=== PATIENT | male | born 1965 | race Caucasian/White ===

== ENCOUNTER 2016-10-04 15:49 | Emergency (ER) | payer BC ==
[2016-10-04 16:08] VITALS: BP 138/77
--- NOTE | 2016-10-04 16:28 | UC ---
UC General HPI - HPI Summary HPI Summary: fever, sinus, chest congestion and SOB on exertion - History of Current Complaint Chief Complaint: UCRespiratory Stated Complaint: SINUS,EAR ACHE Time Seen by Provider: 10/04/16 16:12 Hx Obtained From: Patient Onset/Duration: Sudden Onset, Lasting Days Timing: Constant Onset Severity: Moderate Current Severity: Moderate Pain Intensity: 4 - Allergy/Home Medications Allergies/Adverse Reactions: Allergies Allergy/AdvReac Type Severity Reaction Status Date / Time seasonal Allergy Eyes Uncoded 07/09/14 07:09 Itchy/Swollen/Red/Watery Home Medications: Home Medications Folic Acid-Vitamin B6-Vitamin [Folbee] 1 tab PO DAILY 10/04/16 [History Confirmed 10/04/16] Simvastatin TAB(NF) [Zocor(NF)] 10 mg PO 1700 10/04/16 [History Confirmed ] PMH/Surg Hx/FS Hx/Imm Hx Previously Healthy: Yes Cardiovascular History Of: Reports: Hypertension - Surgical History Surgical History: Yes Surgery Procedure, Year, and Place: Left ankle 2012, nasal 1993 - Family History Known Family History: Positive: Cardiac Disease, Hypertension - Social History Alcohol Use: Daily Alcohol Amount: 2 Substance Use Type: None Smoking Status (MU): Never Smoked Tobacco Review of Systems Skin: Negative Eyes: Negative ENT: Sore Throat, Ear Ache, Nasal Discharge Respiratory: Shortness Of Breath, Cough Cardiovascular: Negative Gastrointestinal: Negative Genitourinary: Negative Motor: Negative Neurovascular: Negative Musculoskeletal: Myalgia Neurological: Headache Psychological: Negative All Other Systems Reviewed And Are Negative: Yes Physical Exam Triage Information Reviewed: Yes Appearance: Well-Nourished, Ill-Appearing, Pain Distress Vital Signs: Initial Vital Signs Temp 98.3 F 10/04/16 16:03 Pulse 81 10/04/16 16:03 Resp 16 10/04/16 16:03 BP 138/77 10/04/16 16:03 Pulse Ox 100 10/04/16 16:03 Vital Signs Reviewed: Yes Eye Exam: Normal Eyes: Positive: Conjunctiva Clear ENT Exam: Normal ENT: Positive: Normal ENT inspection, Hearing grossly normal, Pharynx normal, TMs normal Dental Exam: Normal Neck exam: Normal Neck: Positive: Supple, Nontender, No Lymphadenopathy Respiratory Exam: Normal Respiratory: Positive: Chest non-tender, No respiratory distress, No accessory muscle use, Wheezing, Inspiration Cardiovascular Exam: Normal Cardiovascular: Positive: RRR, No Murmur, Pulses Normal Abdominal Exam: Normal Abdomen Description: Positive: Nontender, No Organomegaly, Soft Bowel Sounds: Positive: Present Musculoskeletal Exam: Normal Musculoskeletal: Positive: Strength Intact, ROM Intact, No Edema Neurological Exam: Normal Neurological: Positive: Alert, Muscle Tone Normal Psychological Exam: Normal Skin Exam: Normal Course/Dx - Course Course Of Treatment: hx obtained, exam performed, meds reviewed, rapid flu obtained, positive for flu A. meds given for bronchospasm - Differential Dx - Multi-Symptom Provider Diagnoses: bronchospasm. influenza a Discharge - Discharge Plan Condition: Stable Disposition: HOME Patient Education Materials: Influenza (ED) Additional Instructions: take tylenol or ibuprofen as prescribed. rest, and get plenty of fluids. take the medication as prescribed.
== END 2016-10-04 17:00 | disposition home or self-care (01) ==
LOC: UCCORT 15:49
DX: J98.01 Acute bronchospasm (principal); J10.1 Influenza due to other identified influenza virus with other respiratory manifestations
CPT/HCPCS: 87502; 99212; G0463

== ENCOUNTER 2016-11-06 11:24 | Emergency (ER) | payer BC ==
--- NOTE | 2016-11-06 13:29 | UC ---
Ear Complaint HPI - HPI Summary HPI Summary: Gumaro he has a 4 week lingering ear infection, ear feels congested and stuffy , no fevers - History of Current Complaint Chief Complaint: UCEar Stated Complaint: LEFT EAR Time Seen by Provider: 11/06/16 13:20 Hx Obtained From: Patient Onset/Duration: Gradual Onset, Lasting Weeks - 4, Still Present Severity Initially: Mild Severity Currently: Mild Pain Intensity: 4 Pain Scale Used: 0-10 Numeric Aggravating Factors: Nothing Alleviating Factors: Nothing Associated Signs/Symptoms: Positive: URI Symptoms - Allergies/Home Medications Allergies/Adverse Reactions: Allergies Allergy/AdvReac Type Severity Reaction Status Date / Time seasonal Allergy Eyes Uncoded 07/09/14 07:09 Itchy/Swollen/Red/Watery PMH/Surg Hx/FS Hx/Imm Hx Previously Healthy: No Cardiovascular History Of: Reports: Hypertension - Surgical History Surgical History: Yes Surgery Procedure, Year, and Place: Left ankle 2012, nasal 1993 - Family History Known Family History: Positive: Cardiac Disease, Hypertension - Social History Occupation: Employed Full-time Lives: With Family Alcohol Use: Daily Alcohol Amount: 2 Substance Use Type: None Smoking Status (MU): Never Smoked Tobacco Review of Systems Constitutional: Negative Skin: Negative Eyes: Negative ENT: Ear Ache, Nasal Discharge Respiratory: Negative Cardiovascular: Negative Gastrointestinal: Negative Genitourinary: Negative Motor: Negative Neurovascular: Negative Musculoskeletal: Negative Neurological: Headache - frontal and maxillary sinus pain L>R Psychological: Negative All Other Systems Reviewed And Are Negative: Yes Physical Exam Triage Information Reviewed: Yes Appearance: Well-Appearing, No Pain Distress, Well-Nourished Vital Signs Reviewed: Yes Eye Exam: Normal Eyes: Positive: Conjunctiva Clear ENT Exam: Normal ENT: Positive: Normal ENT inspection, Hearing grossly normal, Pharynx normal, Nasal congestion, Nasal drainage, TMs normal. Negative: TM red, Tonsillar swelling, Tonsillar exudate, Trismus, Muffled/hoarse voice Dental Exam: Normal Neck exam: Normal Neck: Positive: Supple, Nontender, No Lymphadenopathy Respiratory Exam: Normal Respiratory: Positive: Chest non-tender, Lungs clear, Normal breath sounds, No respiratory distress, No accessory muscle use Cardiovascular Exam: Normal Cardiovascular: Positive: RRR, No Murmur, Pulses Normal, Brisk Capillary Refill Musculoskeletal Exam: Normal Neurological Exam: Normal Neurological: Positive: Alert, Muscle Tone Normal, Fatigued Psychological Exam: Normal Skin Exam: Normal Ear Complaint Course/Dx - Course Course Of Treatment: flonase, augmentin, mucinex d increase fluids follow with pcp re-check with pcp prn - Differential Dx/Diagnosis Differential Diagnosis/HQI/PQRI: Cellulitis, Cerumen Impaction, Otitis Externa, Otitis Media, Pharyngitis, URI, Other - sinusitis Provider Diagnoses: Sinusitis Discharge - Discharge Plan Condition: Stable Disposition: HOME Prescriptions: Amoxicillin/Clavulanate TAB* [Augmentin TAB 875*] 875 mg PO BID #20 tab Fluticasone NASAL SPRAY 50MCG* [Flonase NASAL SPRAY 50MCG*] 2 spray BOTH NARES DAILY #1 btl Patient Education Materials: Decongestant/Expectorant (By mouth), Sinusitis (ED ), How to Use Nasal [place] (ED) Referrals: Alex Arvizu MD [Primary Care Provider] - If Needed
[2016-11-06 14:05] VITALS: BP 116/81
== END 2016-11-06 14:11 | disposition home or self-care (01) ==
LOC: UCCORT 11:24
DX: J32.9 Chronic sinusitis, unspecified (principal)
CPT/HCPCS: 99212; G0463

== ENCOUNTER 2017-07-31 14:32 | Emergency (ER) | payer BC ==
--- NOTE | 2017-07-31 14:56 | UC ---
Lower Extremity/Ankle HPI - HPI Summary HPI Summary: 52 year old male presents with complains of right calf pain secondary to blunt trauma. - History of Current Complaint Stated Complaint: RT LEG COMPLAINT Time Seen by Provider: 07/31/17 14:56 Hx Obtained From: Patient Onset/Duration: Sudden Onset Severity Initially: Moderate Severity Currently: Moderate Pain Scale Used: 0-10 Numeric - 5 Aggravating Factor(s): Standing Alleviating Factor(s): Rest - Allergies/Home Medications Allergies/Adverse Reactions: Allergies Allergy/AdvReac Type Severity Reaction Status Date / Time seasonal Allergy Eyes Uncoded 07/31/17 15:05 Itchy/Swollen/Red/Watery PMH/Surg Hx/FS Hx/Imm Hx Previously Healthy: Yes - Surgical History Surgical History: Yes Surgery Procedure, Year, and Place: Left ankle 2012, nasal 1993 - Family History Known Family History: Positive: Cardiac Disease, Hypertension - Social History Alcohol Use: Daily Alcohol Amount: 2 Substance Use Type: None Smoking Status (MU): Never Smoked Tobacco - Immunization History Most Recent Influenza Vaccination: FALL 2015 Review of Systems Constitutional: Negative Skin: Negative Eyes: Negative ENT: Negative Respiratory: Negative Cardiovascular: Negative Gastrointestinal: Negative Genitourinary: Negative Motor: Negative Neurovascular: Negative Musculoskeletal: Other: - right calf pain/swelling Neurological: Negative Psychological: Negative All Other Systems Reviewed And Are Negative: Yes Physical Exam Triage Information Reviewed: Yes Vital Signs Reviewed: Yes Eye Exam: Normal ENT Exam: Normal Dental Exam: Normal Neck exam: Normal Neck: Positive: 1 Respiratory Exam: Normal Cardiovascular Exam: Normal Abdominal Exam: Normal Musculoskeletal: Positive: Other: - right calf pain/swelling Neurological Exam: Normal Psychological Exam: Normal Skin Exam: Normal Lower Extremity Course/Dx - Differential Dx/Diagnosis Provider Diagnoses: right calf pain/swelling Discharge - Discharge Plan Condition: Stable Disposition: HOME Discharge Disposition Comment: patient suggested to go to the er to rule out dvt Patient Education Materials: Deep Venous Thrombosis (ED) Referrals: Alex Arvizu MD [Primary Care Provider] - Additional Instructions: patient suggested to go to er for dvt r/o
[2017-07-31 15:11] VITALS: BP 129/81
== END 2017-07-31 15:25 | disposition home or self-care (01) ==
LOC: UCCORT 14:32
DX: M79.661 Pain in right lower leg (principal); R60.0 Localized edema
CPT/HCPCS: 99212; G0463

== ENCOUNTER 2017-10-21 18:05 | Emergency (ER) | payer BC ==
[2017-10-21] MEDS ORDERED: Acetaminophen TAB* 325 MG PO ONE (18:55)
--- NOTE | 2017-10-21 18:58 | UC ---
Elbow Pain - HPI Summary HPI Summary: Elvin running marathon and fell on ice. landed on tailbone and on extended forearm. felt jarring in elbow and pain. Fell a second time in same way. Hurt elbow and forearm. No previous injury to elbow. Patient is right handed. - History of Current Complaint Chief Complaint: UCUpperExtremity Stated Complaint: LEFT ARM INJURY Time Seen by Provider: 10/21/17 18:15 Pain Intensity: 7 Location Of Pain: Is Discrete @ - elbow and proximal, lateral forearm. Character: Aching Aggravating Factor(s): Movement Alleviating Factor(s): Rest, Ice Associated Signs And Symptoms: Positive: Swelling - Allergies/Home Medications Allergies/Adverse Reactions: Allergies Allergy/AdvReac Type Severity Reaction Status Date / Time seasonal Allergy Eyes Uncoded 10/21/17 18:20 Itchy/Swollen/Red/Watery Home Medications: Home Medications Cyanocobalamin/Folic AC/Vit B6 [Folbee Tablet] 1 each PO DAILY 10/21/17 [ History Confirmed 10/21/17] PMH/Surg Hx/FS Hx/Imm Hx Previously Healthy: No Endocrine History: Other Cardiovascular History: Hypertension, Deep Vein Thrombosis - Surgical History Surgical History: Yes Surgery Procedure, Year, and Place: Left ankle 2012, nasal 1993 - Family History Known Family History: Positive: Cardiac Disease, Hypertension - Social History 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 Lives: With Family Alcohol Use: Daily Alcohol Amount: 2 Substance Use Type: None Smoking Status (MU): Never Smoked Tobacco - Immunization History Most Recent Influenza Vaccination: FALL 2015 Review of Systems Constitutional: Negative Skin: Negative Eyes: Negative ENT: Negative Respiratory: Negative Cardiovascular: Negative Gastrointestinal: Negative Genitourinary: Negative Motor: Decreased ROM - to left elbow. hurts to move it. Neurovascular: Negative Musculoskeletal: Arthralgia, Decreased ROM, Edema - to right elbow. Neurological: Negative Psychological: Negative Is Patient Immunocompromised?: No All Other Systems Reviewed And Are Negative: Yes Physical Exam - Summary Physical Exam Summary: lisbeth fell twice onto extended hand and arm. Has pain in elbow. Triage Information Reviewed: Yes Appearance: Well-Appearing Vital Signs: Initial Vital Signs Temp 100.7 F 10/21/17 18:09 Pulse 115 10/21/17 18:09 Resp 16 10/21/17 18:09 BP 111/80 10/21/17 18:09 Pulse Ox 97 10/21/17 18:09 Vital Signs Reviewed: Yes Eye Exam: Normal ENT Exam: Normal Dental Exam: Normal Neck exam: Normal Neck: Positive: Supple, Nontender Respiratory Exam: Normal Respiratory: Positive: Chest non-tender, Lungs clear Cardiovascular Exam: Normal Cardiovascular: Positive: RRR, No Murmur, Pulses Normal, Brisk Capillary Refill Abdominal Exam: Normal Abdomen Description: Positive: Nontender Bowel Sounds: Positive: Present Musculoskeletal: Positive: Strength Intact, ROM Limited @ - elbow, Edema @ - lateral proximal forearm and elbow. Psychological Exam: Normal Psychological: Positive: Age Appropriate Behavior Skin Exam: Normal Procedures - Splinting Location: right upper extremity Hand-Made Type: orthoglass Splint: posterior elbow, forearm Pre-Proc Neuro Vasc Exam: normal Post-Proc Neuro Vasc Exam: normal - patient tolerated very well. Diagnostics - Laboratory Diagnostic Studies Completed/Ordered: x-ray shows non displaced fracture of right radial head. Elbow Pain Course/Dx - Differential Dx/Diagnosis Differential Diagnosis/HQI/PQRI: Fracture (Closed) Provider Diagnoses: fracture head of radius, right, non displaced.. Discharge - Discharge Plan Condition: Stable Disposition: HOME Meds/Orders/Equipment: ELBOW RIGHT 3+ VWS [DX] Location: None Selected FOREARM RIGHT 2 VWS [DX] Location: None Selected Patient Education Materials: Elbow Fracture (ED) Print Language: GREENLANDIC Forms: *Work Release Referrals: Sam Waters MD [Medical Doctor] - 2 Days Alex Arvizu MD [Primary Care Provider] - Additional Instructions: May not use left upper extremity until advised by ortho Use Tylenlol, as needed, for pain. Do not use Aleve or ibuprofen. place a cold pack on affected area todya and tomorrow.
--- NOTE | 2017-10-21 19:11 | RAD ---
HISTORY: Lateral forearm pain, fall COMPARISONS: None VIEWS: 6, Frontal, lateral, and oblique views of the right elbow with frontal and lateral views of the right forearm FINDINGS: BONE DENSITY: Normal. BONES: There is an acute nondisplaced fracture of the radial neck and head with articular extension. There is a chronic appearing fracture of the styloid process of the elbow. JOINTS: There is no arthropathy. ALIGNMENT: There is no dislocation. SOFT TISSUES: Unremarkable. OTHER FINDINGS: None. IMPRESSION: ACUTE NONDISPLACED FRACTURE OF THE RADIAL NECK AND HEAD WITH ARTICULAR EXTENSION.
[2017-10-21 20:22] VITALS: BP 114/78
== END 2017-10-21 20:30 | disposition home or self-care (01) ==
LOC: UCCORT 18:05
DX: S52.124A Nondisplaced fracture of head of right radius, initial encounter for closed fracture (principal); W00.0XXA Fall on same level due to ice and snow, initial encounter; Y93.02 Activity, running; Y92.89 Other specified places as the place of occurrence of the external cause; I10 Essential (primary) hypertension
CPT/HCPCS: 25600; 99213; A9270-GY; G0463